=== PATIENT | male | born 1990 | race Caucasian/White ===

== ENCOUNTER → 2020-02-25 10:31 | Outpatient (CLI) | payer OTHER, SELFPAY ==
--- NOTE | ~2020-02-25 | CT_ITS ---
EXAMINATION: CT sinus wo con DATE: 02/25/2020 10:46 INDICATION: Chronic pansinusitis TECHNIQUE: Computed tomography (CT) of the paranasal sinuses was performed without contrast. Iterativ e reconstruction technique was employed. Exam dose: 278.24 mGy-cm total exam DLP. COMPARISON: None FINDINGS: There is rightward deviation of the nasal septum. There is prominent intralamellar cell of the middle nasal turbinates, partially opacified on the righ t. The nasal turbinates are moderately swollen. There is nodular soft tissue thickening at the margin of the left maxillary ostium but the ostium and infundibulum are patent. Right ostiomeatal unit is patent. There is mild nodular mucoperiosteal thickening of both maxillary sinuses and minimal mucoperiosteal thickening of the frontal sinuses and to a lesser extent sphenoid sinuses. There is patchy mild soft tissue thickening of the ethmoid air cells. The mastoid air cells are normally developed and aerated. IMPRESSION: Rightward deviation of nasal septum Moderate soft tissue swelling of the nasal turbinates Prominent intralamellar cell of both middle nasal turbinates, partially opacified on the right Mild mucoperiosteal thickening of the paranasal sinuses Reviewed, dictated and finalized at [facility]. Reviewed, dictated and finalized at [facility]. DYNAMICIST IMPRESSION: Rightward deviation of nasal septum Moderate soft tissue swelling of the nasal turbinates Prominent intralamellar cell of both middle nasal turbinates, partially opacifi ed on the right Mild mucoperiosteal thickening of the paranasal sinuses
== END ==
PROVIDERS: PCP Physician Assistant; Visit Provider Physician Assistant
DX: J32.4 Chronic pansinusitis (principal); J34.2 Deviated nasal septum
CPT/HCPCS: 70486

== ENCOUNTER → 2021-05-25 15:26 | Outpatient (CLI) | payer OTHER, SELFPAY ==
--- NOTE | ~2021-05-25 | XR_ITS ---
EXAMINATION: XR hand RT min 3V DATE: 05/25/2021 15:55 INDICATION: Right thumb pain TECHNIQUE: Posteroanterior, oblique and lateral views of the right hand were obtained. COMPARISON: None. FINDINGS: Bone alignment is normal. No fracture. Mild osteoarthritis with mild nonuniform joint space narrowing and tiny marginal osteophytes at the first metacarpophalangeal joint. Many joint spaces are normal. No erosions to suggest an inflammatory arthritis. Tiny ossicle at the radial side of the first metaca rpophalangeal joint space which could represent a degenerative loose body or heterotopic ossification related to old trauma IMPRESSION: 1. 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 Reviewed, dictated and finalized at [facility]. TY COMMISSIONER
--- NOTE | ~2021-05-25 | XR_ITS ---
EXAMINATION: XR ankle RT min 3V DATE: 05/25/2021 15:55 INDICATION: Chronic right ankle pain TECHNIQUE: Anteroposterior, oblique, mortise, and lateral views of the right ankle were obtained. COMPARISON: None. FINDINGS: Alignment is normal. No fracture. Joint spaces are well maintained. Small heterotopic ossicle near t he tip of the lateral malleolus in location and orientation suggesting sequela of chronic sprain of t he anterior talofibular ligament. Normal accessory os naviculare. Bone islands at the calcaneus and a nterior talus. No ankle joint effusion. The soft tissues are unremarkable. IMPRESSION: 1. Small heterotopic ossicle near the tip the lateral malleolus likely sequela of chronic lateral ank le sprain. Reviewed, dictated and finalized at [facility]. HEN MANAGER IMPRESSION: 1. Small heterotopic ossicle near the tip the lateral malleolus likely sequela of chronic lateral ankle sprain.
== END ==
PROVIDERS: PCP Physician Assistant; Visit Provider Family Medicine
DX: M19.041 Primary osteoarthritis, right hand (principal)
CPT/HCPCS: 73130; 73610